=== PATIENT | female | born 1960 | race African-American/Black ===

== ENCOUNTER 2024-12-22 17:28 | Emergency (ER) | payer MEDICAID, SELFPAY ==
[2024-12-22 17:47] VITALS: BP 132/86; PULSE 90; O2SAT 97; BMI 35.0
[2024-12-22 17:56] VITALS: BP 132/72; PULSE 86; RESP 14; TEMP 36.7; O2SAT 97
--- NOTE | 2024-12-22 18:11 | ED.GENADULT ---
HPI - General Adult General Chief complaint: General Medical Stated complaint: pain in feet from arthritis, sob Time Seen by Provider: 12/22/24 18:03 Source: patient, EMS and old records reviewed Mode of arrival: EMS Limitations: no limitations History of Present Illness ED Provider: Yonathan ULLOA HPI narrative: The patient is a 64-year-old female with a history of COPD, hypertension, fibromyalgia, bipolar disorder, and crack cocaine dependency who was [facility] from [facility] on 11/27/2024. The patient reportedly has been treated with an [id number] cream for her chronic bilateral feet pain. The patient advises the facility has run out of the foot cream and is unable to get the cream until Tuesday. Per EMS the patient also reported increased shortness of breath, however is speaking in full clear, and rapid sentences without evidence of respiratory distress. In the ED patient denies shortness of breath or other acute somatic complaint. Patient denies any injury. The patient presents to the ED with pressured speech and agitated affect, reliability is questionable. Facility was contacted to confirm patient's reported HPI, facility staff advised that the facility has not run out of the cream, however advise it is an [id number] arthritis cream that the patient has available to her and can put on at her leisure, staff reports the patient is over applying the cream every 20 minutes and running out, then demanding that the staff take the same cream from other residents and give it to her. The staff also advised that despite the patient's report of 10/10 bilateral foot pain, the patient is ambulating steadily throughout the facility without evidence of discomfort demanding other residents give her their cream. Related Data Previous Rx's ?Medication ?Instructions ?Recorded diclofenac sodium 1 % topical gel 2 g topical QID PRN pain, moderate 12/22/24 (Voltaren Arthritis Pain) #100 grams Allergies Allergy/AdvReac Type Severity Reaction Status Date / Time Opioids-Meperidine and Allergy Unknown Verified 12/22/24 17:51 Related Review of Systems Review of Systems: Yes all other systems are reviewed and are negative Physical Exam ED Vital Signs: Vital Signs - 24 hr 12/22/24 17:56 Temperature 98.0 F Pulse Rate 86 Respiratory Rate 14 Blood Pressure 132/72 Pulse Oximetry 97 Oxygen Delivery Method Room Air BMI result Body Mass Index 35.0 CONSTITUTIONAL: The patient appears non-toxic, well nourished and in no acute distress. Vital signs as documented. HEAD: Atraumatic, normocephalic. EYES: EOMs grossly intact, pupils equal, conjunctiva clear, no exudate. ENT: Nares patent, no discharge. Airway patent, no audible stridor, visible mucosa is pink and moist without noted lesions. NECK: Trachea is midline, no obvious masses or gross abnormalities. CHEST: Symmetric movement, normal appearance. LUNGS: LS present and CTAB, no w/r/r. Non-labored work of breathing. CARDIAC: Regular Rhythm, S1/S2 appreciated, no murmurs, rubs or gallops. ABDOMEN: Abdomen soft and non-tender x4 quadrants, no palpable masses or organomegaly. : Deferred. EXTREMITIES: Bilateral feet show no evidence of erythema, contusion, injury, open wound, candidal infection, or other acute pathology. Distal CSM is intact, 2+ DP/PT pulses bilaterally. Normal tone, moves all extremities spontaneously without reported pain. No obvious acute injury or deformity noted. NEURO: Alert and oriented x3, CN II-XII appear grossly intact. Cerebellar Functioning grossly intact. No obvious sensory or motor deficits. Speech clear and appropriate. PSYCH: normal affect, appropriate eye contact, fluid speech, with appropriate response to questioning. No reported suicidality or homicidality. SKIN: Warm, dry, color appropriate, normal turgor. No rashes noted. Medical Decision Making Medical Decision Making MDM Narrative: 6:48 PM 12/22/2024 (Em ULLOA): The patient is a 64-year-old female with a history of COPD, hypertension, fibromyalgia, bipolar disorder, and crack cocaine dependency, presenting to from her nursing facility reporting intolerable 10/10 chronic bilateral foot pain and running out of her arthritis foot cream. The patient's facility advises the patient does not have a prescription arthritic scream, and is overusing her personal foot cream which is why it ran out. The patient appears in no acute distress in the ED, foot exam is unremarkable. The patient will be treated with Aspercreme and discharged with a prescription for Voltaren gel, according to facility staff prescription should be sent to [facility] at [address] [place] [address] in [place]. External Record Review External record reviewed: Outpatient record Prescription Management I considered prescription management with: Pain Medication Discharge Plan Discharge Clinical Impression: Chronic foot pain Patient Disposition: Home, Self-Care Instructions: Arthralgia (ED) Additional Instructions: Thank you for choosing [facility]'s Emergency Department for your care today. At this time there is no indication for admission to the hospital or continued ED observation, and it is safe to discharge you home. We are treating your chronic foot pain with Voltaren gel. This is a prescription strength arthritis cream which should result in significant relief of your bilateral foot pain. However, because it is prescription strength it must be maintained by your facility staff and administered on a scheduled basis per manufacture recommendations. Please follow up with your primary care physician for re-evaluation, additional management of your symptoms, and continued preventative care. If you do not have a primary care physician, please call the [facility] at [phone] to establish a new primary care physician. While waiting to establish your new primary care physician, you can call our [facility] at [phone] for non-emergency needs. Please return to the emergency department if you develop a severe or sudden change in your symptoms, a fever over 100.4 that does not improve with Tylenol or Ibuprofen, recurrent vomiting, or any other new or worsening symptoms or concerns. Prescriptions: New diclofenac sodium [Voltaren Arthritis Pain] 1 % gel 2 g topical QID PRN (Reason: pain, moderate) Qty: 100 0RF Rx Instructions: apply to bilateral feet Print Language: South African
[2024-12-22] MEDS: Trolamine Salicylate 10 % Cream 85 GM TUBE 1 APPL TOPICAL (19:22)
[2024-12-22 20:43] VITALS: BP 155/92; PULSE 87; RESP 20; TEMP 36.6; O2SAT 97
[2024-12-22 21:15] VITALS: BP 155/92; PULSE 87; RESP 20; TEMP 36.6; O2SAT 97
== END 2024-12-22 23:28 | disposition home or self-care (01) ==
PROVIDERS: Emergency Provider Emergency Medicine
DX: G89.29 Other chronic pain (principal); M79.671 Pain in right foot; M79.672 Pain in left foot; R06.02 Shortness of breath; J44.9 Chronic obstructive pulmonary disease, unspecified; I10 Essential (primary) hypertension; M79.7 Fibromyalgia; F31.9 Bipolar disorder, unspecified; F14.20 Cocaine dependence, uncomplicated
CPT/HCPCS: 99283

== ENCOUNTER 2024-12-28 08:10 | Emergency (ER) | payer MEDICAID, SELFPAY ==
--- NOTE | ~2024-12-28 | CT_ITS ---
EXAMINATION: CT ABDOMEN AND PELVIS WITH CONTRAST CLINICAL INFORMATION: lower abdominal pain, sensation of urinary retention COMPARISON: None available. TECHNIQUE: Multidetector volumetric images were obtained from the superior aspect of the liver through the pubic symphysis following administration 85 mL of Omnipaque 350 intravenous contrast. Sagittal and coronal reformatted images were obtained on the technologist's workstation. Oral contrast: No This CT examination was performed using dose optimization techniques as appropriate, variously including the following: *Automated exposure control *Adjustment of mA and/or kV according to patient size (this includes techniques or standardized protocols for targeted exams where dose is matched to indication/reason for exam; i.e. extremities or head) *Use of iterative reconstruction technique DLP: 773 mGY*cm FINDINGS: LUNG BASES: Minimal linear atelectasis present in the dependent portion of the right lung base. LIVER, GALLBLADDER, AND BILIARY TREE: Mild diffuse fatty changes are present liver. The gallbladder is unremarkable with no evidence of radiopaque gallstones, gallbladder wall thickening, or obvious pericholecystic inflammatory changes. PANCREAS: Unremarkable. SPLEEN: Unremarkable. ADRENAL GLANDS: Unremarkable. KIDNEYS AND URETERS: Multifocal cortical scarring is present bilaterally. There is a simple renal cyst in the lower left kidney. BLADDER: Unremarkable. GASTROINTESTINAL TRACT: Pseudodiverticula are present in the distal descending and sigmoid colon. There is no wall thickening or inflammatory changes in the adjacent adipose tissues. There are surgical changes from prior appendectomy. ABDOMINAL WALL: No significant hernia is appreciated. LYMPH NODES: Normal. VASCULAR: Mild multifocal atherosclerotic calcifications are present. PELVIC VISCERA: Unremarkable. OSSEOUS STRUCTURES: There is moderate disc space narrowing with vacuum phenomenon and grade 1 anterolisthesis at L4-5. There is moderate facet osteoarthritis. Moderate degenerative changes are present in the pubic symphysis joint. There is a transitional L5 segment with sacralization. Transverse processes articulate with superior sacrum. CT/CT abdomen pelvis w IV con IMPRESSION: Fatty liver. Changes from prior appendectomy. Multifocal renal cortical scarring is consistent with prior pyelonephritis. Diverticulosis without acute infection. Moderate degenerative disc disease and facet osteoarthritis at L4-5. Sacralized L5 segment. Fleischner guidelines were followed. Electronically signed by: Joey Longoria MD 12/28/2024 11:13 AM EDT
[2024-12-28 08:18] VITALS: BP 139/89; BP 142/98; PULSE 82; PULSE 86; RESP 18; TEMP 36.4; O2SAT 98; O2SAT 99; BMI 38.5
--- NOTE | 2024-12-28 08:21 | ED_ITS ---
HPI - General Adult General Chief complaint: Urogenital-Female Stated complaint: INABILITY TO URINATE Time Seen by Provider: 12/28/24 08:21 History of Present Illness ED Provider: Mark CAMPOS narrative: The patient is a 64-year-old woman who says that she feels like she has not been able to urinate since 21:00 last night. She says that she has an intense sensation that she needs to urinate and she says that she feels like her bladder ?is going to burst. ?. The pain is an 8/10. She does not feel that it radiates to her flank on either side. She has had no nausea or vomiting. She has never had an episode like this before. She is very hungry because she has not eaten breakfast. The patient is currently living at the [facility]. She has only been living there for a few weeks. She had previously been living in the [place] area. She has a primary care doctor in the [place] area. She does not yet have a local primary care doctor. Related Data Previous Rx's ?Medication ?Instructions ?Recorded diclofenac sodium 1 % topical gel 2 g topical QID PRN pain, moderate 12/22/24 (Voltaren Arthritis Pain) #100 grams Allergies Allergy/AdvReac Type Severity Reaction Status Date / Time Opioids-Meperidine and Allergy Unknown Verified 12/28/24 08:20 Related Review of Systems 2 Review of Systems: Yes all other systems are reviewed and are negative Physical Exam ED Vital Signs: Vital Signs - 24 hr 12/28/24 08:18 12/28/24 09:30 12/28/24 11:14 Temperature 97.5 F 97.5 F 97.7 F Pulse Rate 86 86 91 Respiratory Rate 18 18 16 Blood Pressure 139/89 139/89 118/74 Pulse Oximetry 99 99 97 Oxygen Delivery Method Room Air Room Air Room Air BMI result Body Mass Index 38.5 Const Other: The patient is a 64-year-old woman who was somewhat chronically ill-appearing. She said that she was in a great deal of discomfort but she did not appear obviously restless or show other significant outward signs of discomfort. She has a somewhat unusual demeanor. Orientation/consciousness: patient oriented x3 HENMT Other: The face is symmetrical. ?Mucous membranes moist. Eyes Other: Pupils are round equal, conjunctivae are clear, extraocular movements intact Neck Neck: Yes normal visual inspection, Yes full ROM and Yes no JVD Resp Effort & Inspection: normal respiratory effort Auscultation: clear to auscultation bilaterally Cardio Rate: regular rate Rhythm: regular rhythm Heart sounds: S1 normal heart sound present and S2 normal heart sound present GI Other: The abdomen was soft and did not seem particularly tender. Specifically she does not seem to have tenderness in the suprapubic region. Back/Spine/Pelvis Other: No CVA percussion tenderness on either flank Skin Other: The skin is dry and unremarkable Neuro General: patient oriented x3, moves all extremities, no focal motor deficits and CN's II-XI intact bilaterally Extrem Other: No significant calf swelling or tenderness, no asymmetry Medications Administered Discontinued Medications Generic Name Dose Route Start Last Admin Trade Name Freq PRN Reason Stop Dose Admin Gabapentin 800 mg 12/28/24 13:02 12/28/24 13:12 Gabapentin 400 Mg Capsule PO 12/28/24 13:03 800 mg ONCE ONE Administration Iohexol 100 ml 12/28/24 10:50 12/28/24 10:51 Iohexol 350 Mg/Ml 100 Ml Infus..Btl IV 12/28/24 10:51 85 ml ONCE ONE Administration Medical Decision Making Medical Decision Making [facility] Narrative: The patient is a 64-year-old woman who [facility]. She is a relatively new resident there. She has a only been there for a few weeks. She had previously been living in [place], [place]. She has not yet established local providers. The patient presented with a complaint of being unable to void although her bladder scan only showed a bladder volume of about 160 mL. She insisted that she could not pee. She was given a urinary catheter and her bladder was drained. She later said that she needed to have a bowel movement and requested that the urinary catheter be removed so she could go to the bathroom. The catheter was removed. She went to the bathroom and says that she had a good bowel movement. A CT of the abdomen and pelvis was done to look for any anatomical reason she might have had trouble voiding. This was negative. She then requested that she return to her rest home. She was observed waiting for an ambulance to return her to the rest [facility]. She had no recurrent complaints of urinary retention or inability to void. Perhaps she had had a large amount of stool that was interfering with voiding. Ultimately she was transferred by ambulance back to her rest home. Lab Data 12/28/24 09:16 12/28/24 09:16 Labs: Lab Results 12/28/24 Range/Units 09:16 WBC 5.0 (4.8-10.8) X10*3/uL RBC 3.44 L (4.20-5.50) X10*6/uL Hgb 10.3 L (12.0-16.0) g/dl Hct 32.0 L (37.0-47.0) % MCV 93.0 (80.0-98.0) fL MCH 29.9 (27.0-33.0) pg MCHC 32.2 (31.0-35.0) g/dl RDW 14.4 (11.0-16.0) % Plt Count 199 (160-400) X10*3/uL MPV 11.4 (9.4-12.3) fL Immature Gran % (Auto) 0.2 (0.0-0.4) % Neut % (Auto) 47.0 (45-73) % Lymph % (Auto) 38.0 (20-40) % [place] % (Auto) 9.6 (2-11) % Eos % (Auto) 4.6 H (0-4) % Baso % (Auto) 0.6 (0-2) % Lymph # (Auto) 1.9 (1.2-4.9) X10*3/uL [place] # (Auto) 0.5 (0.1-1.2) X10*3/uL Eos # (Auto) 0.2 (0.0-0.4) X10*3/uL Baso # (Auto) 0.0 (0.0-0.2) X10*3/uL Abs Immat Gran (auto) 0.01 (0.00-0.03) X10*3/uL Absolute Neuts (auto) 2.4 (2.0-8.3) x10*3/uL Absolute Nucleated RBC 0.000 (0.0-0.012) X10*3/uL Nucleated RBC % (auto) 0.0 (0.0-0.2) /100WBC Sodium 141 (135-145) mmol/L Potassium 4.3 (3.3-5.1) mmol/L Chloride 108 (96-108) mmol/L Carbon Dioxide 23 (22-29) mmol/L Anion Gap 14 (12-20) BUN 17 H (9-16) mg/dL Creatinine 1.01 (0.5-1.4) mg/dL Estim Creat Clear Calc 71.8 Estimated GFR 56 Random Glucose 88 (60-115) mg/dL Calcium 9.2 (8.4-10.2) mg/dL Total Bilirubin 0.2 (0.0-1.0) mg/dL Direct Bilirubin < 0.2 (0.0-0.5) mg/dL AST 37 H (5-31) U/L ALT 49 H (0-31) U/L Alkaline Phosphatase 74 (39-117) U/L C-Reactive Protein 0.28 (< or = 0.50) mg/dL Total Protein 7.8 (6.5-8.0) g/dL Albumin 4.6 (3.5-5.0) g/dL Urine Color Yellow Urine Appearance Clear Urine pH 6.0 (5.0-9.0) Ur Specific Hendricks 1.020 (1.005-1.025) Urine Protein Negative (Neg-Trace) mg/dL Urine Glucose (UA) Negative (Negative) mg/dL Urine Ketones Negative (Negative) mg/dL Urine Blood Negative (Negative) Urine Nitrite Negative (Negative) Ur Leukocyte Esterase Negative (Negative) Discharge Plan Discharge Clinical Impression: Difficulty voiding Patient Disposition: Home, Self-Care Additional Instructions: I am not sure why you were having difficulty urinating today. Your urinalysis does not show any sign of infection. Your CAT scan does not show any obvious concerning anatomical problem. Perhaps you were somewhat constipated and this has been relieved with a bowel movement. Sometimes constipation can cause a person to retain urine. Please continue your regular medications. Please work on getting a new local primary care doctor. You has been given the contact information for some local primary care offices. Return to the emergency room if you are significantly worse. Prescriptions: No Action diclofenac sodium [Voltaren Arthritis Pain] 1 % gel 2 g topical QID PRN (Reason: pain, moderate) Qty: 100 0RF Rx Instructions: apply to bilateral feet Referrals: [facility] Primary CareJoshua [Provider Group, Internal Medicine] [facility] Primary Care, Nicole [Provider Group, Internal Medicine] [facility] Primary Care, ALEJANDRO [Provider Group, Primary Care] Anitra Gurrola MD [Physician, Internal Medicine] Interventions: ED Discharge Assessment Last Done: 12/28/24 15:33 Discharge Date/Time: 12/28/24 15:33 Print Language: Hebrew
--- NOTE | 2024-12-28 08:27 | PC.NURSE ---
Patient from [facility]. A&O x4 Patient reports not being able to urinate since 9pm last night. Patient reports bladder feels full Its going to burst Pain rated 8/10 non radiating. Abdomen soft and tender in lower quadrants Bladder scanned for 161ml Denies any recent urinary symptoms, denies having past trouble voiding
--- NOTE | 2024-12-28 08:57 | PC.NURSE ---
Raymundo inserted 16fr 10ml balloon. Patient tolerated procedure Raymundo patent draining yellow urine for approx 100ml Patient reports relief
--- OUTSIDE RECORDS SUMMARY | 2024-12-28 09:27 | XMS_ITS | Patient Health Record ---
Author Organization [facility] Address [address], [place] [id number] Care Team Providers Care Java Developer Consultant Name Role Phone David Gunn [facility] Primary Care Provider [facility] Unavailable [phone] Reason For Referral No Information Plan Of Treatment No Information Insurance Providers Payer Name Payer Address Payer Phone Subscriber Number Group Number Insured Name Patient Relationship to Insured Coverage Start Date Coverage End Date [facility] [employer] [address] [place] [address] [id number] Lakia Zacarias Self - patient is the insured [place] Medicaid Standard [address] [place] [address] [phone] [id number] Lakia Zacarias Self - patient is the insured
[2024-12-28 09:29] LABS: MANUAL DIFF FLAG NO
[2024-12-28 09:30] VITALS: BP 139/89; PULSE 86; RESP 18; TEMP 36.4; O2SAT 99
[2024-12-28 09:31] LABS: Hematocrit 32.0 % (37.0-47.0); Hemoglobin 10.3 g/dl (12.0-16.0); Imm Gran Abs Auto 0.01 X10*3/uL (0.00-0.03); Imm Gran Pct Auto 0.2 % (0.0-0.4); Lymphocytes Absolute Auto 1.9 X10*3/uL (1.2-4.9); Mean Corpuscular HGB Conc 32.2 g/dl (31.0-35.0); Mean Corpuscular Hemoglobin 29.9 pg (27.0-33.0); Mean Corpuscular Volume 93.0 fL (80.0-98.0); NRBC Abs Auto 0.000 X10*3/uL (0.0-0.012); NRBC Pct Auto 0.0 /100WBC (0.0-0.2); Platelet Count 199 X10*3/uL (160-400); Red Blood Count 3.44 X10*6/uL (4.20-5.50); White Blood Count 5.0 X10*3/uL (4.8-10.8)
[2024-12-28 09:32] LABS: Appearance Urine Clear; Glucose Urine UA Negative (Negative); PH 6.0 (5.0-9.0); Specific Gravity - Urine 1.020 (1.005-1.025)
[2024-12-28 09:55] LABS: Alanine Aminotransferase 49 U/L (0-31); Albumin Level 4.6 g/dL (3.5-5.0); Alkaline Phosphatase 74 U/L (39-117); Anion Gap 14 (12-20); Aspartate Amino Transferase 37 U/L (5-31); Blood Urea Nitrogen 17 mg/dL (9-16); Calcium 9.2 mg/dL (8.4-10.2); Carbon Dioxide 23 mmol/L (22-29); Chloride 108 mmol/L (96-108); Creatinine Clr Calc Pharmacy 71.8; Estimated Glomerular Filt Rate 56; Potassium 4.3 mmol/L (3.3-5.1); Sodium 141 mmol/L (135-145); Total Protein 7.8 g/dL (6.5-8.0)
[2024-12-28] MEDS: iohexoL 350 MG/ML 100 ML INFUS..BTL IV (10:51)
[2024-12-28 11:14] VITALS: BP 118/74; PULSE 91; RESP 16; TEMP 36.5; O2SAT 97
--- NOTE | 2024-12-28 11:14 | PC.NURSE ---
Raymundo has been removed Patient able to ambulate with cane to bathroom +void results Patient denies pain
[2024-12-28 15:33] VITALS: BP 118/74; PULSE 91; RESP 16; TEMP 36.5; O2SAT 97
== END 2024-12-28 15:33 | disposition home or self-care (01) ==
PROVIDERS: Emergency Provider Emergency Medicine
DX: R33.9 Retention of urine, unspecified (principal); R10.2 Pelvic and perineal pain; Z79.899 Other long term (current) drug therapy
CPT/HCPCS: 36415; 74177; 80048; 80076; 81003; 85025; 86140; 99285; Q9967

== ENCOUNTER → 2024-12-28 10:12 | Outpatient (BNV) | payer MEDICAID, SELFPAY | PROVIDERS: Emergency Provider Emergency Medicine; Visit Provider Radiology Diagnostic Radiology | DX: R39.14 Feeling of incomplete bladder emptying (principal) | CPT/HCPCS: 74177 ==

== ENCOUNTER 2025-02-25 13:58 | Emergency (ER) | payer MEDICAID, SELFPAY ==
--- NOTE | ~2025-02-25 | XR_ITS ---
EXAMINATION: XR CHEST CLINICAL INFORMATION: dyspnea COMPARISON: None available. TECHNIQUE: Frontal view of the chest was obtained. FINDINGS: The cardiac, hilar, and mediastinal contours are normal. The lungs are clear bilaterally. No pneumothorax or effusion. No focal osseous or soft tissue abnormality. XR/XR chest 1V IMPRESSION: No active pulmonary disease. Electronically signed by: Yonathan Madera MD 02/25/2025 04:07 PM EDT
--- NOTE | 2025-02-25 14:43 | ECG_ITS ---
Test Reason : SOB Blood Pressure : */* mmHG Vent. Rate : 87 BPM Atrial Rate : 87 BPM P-R Int : 138 ms QRS Dur : 70 ms QT Int : 364 ms P-R-T Axes : 48 14 27 degrees QTcB Int : 438 ms Normal sinus rhythm Nonspecific T wave abnormality Abnormal ECG No previous ECGs available Referred By: Stefanie Calero Electronically Signed By: JOSIAH RAMIREZ MD
[2025-02-25 15:04] VITALS: BP 110/72; BP 128/80; PULSE 100; PULSE 66; RESP 22; TEMP 36.8; O2SAT 95; O2SAT 98; BMI 36.8
--- NOTE | 2025-02-25 15:18 | ED.GENADULT ---
HPI - General Adult General Chief complaint: General Medical Stated complaint: ETOH Time Seen by Provider: 02/25/25 14:18 Source: patient and old records reviewed Mode of arrival: ambulatory Limitations: no limitations History of Present Illness ED Provider: GINI CAMPOS narrative: 65 yo female with PMH of ETOH use disorder, fibromyalgia, asthma, HTN, she resides at [facility] - she has been missing for several weeks. She notes that she relapsed with alcohol. I am 65 I am too old to be doing this. She denies SI/HI. She is alert and oriented x 3. She denies headstrike. She states her only complaint is she feels anxious and a little short of breath. She wants arthritis gel for her feet. She is reading a book. She states she has been staying at [facility]. She also notes she has been using crack cocaine MD complaint: alcohol abuse Onset (ago): year(s) Radiation: non-radiation Severity: mild Relieving factors: none Exacerbating factors: other Associated symptoms: shortness of breath Treatments prior to arrival: none Related Data Home Medications ?Medication ?Instructions ?Recorded ?Confirmed Lactobacillus acidophilus 0.5 mg 500 mg PO QID 02/25/25 02/25/25 (100 million cell) tablet acetaminophen 325 mg tablet 650 mg PO Q6H PRN Pain 02/25/25 02/25/25 albuterol sulfate 90 mcg/actuation 2 puff inhalation Q4-6H PRN SOB 02/25/25 02/25/25 aerosol inhaler aspirin 81 mg tablet,delayed 81 mg PO DAILY 02/25/25 02/25/25 release atorvastatin 80 mg tablet 80 mg PO DAILY 02/25/25 02/25/25 cyclobenzaprine 10 mg tablet 10 mg PO DAILY PRN Spasms 02/25/25 02/26/25 divalproex 500 mg tablet,delayed 500 mg PO BID 02/25/25 02/25/25 release gabapentin 800 mg tablet 800 mg PO TID 02/25/25 02/25/25 ibuprofen 400 mg tablet 400 mg PO Q6H PRN Pain 02/25/25 02/25/25 lisinopril 10 mg tablet 10 mg PO DAILY 02/25/25 02/25/25 loratadine 10 mg tablet 10 mg PO DAILY 02/25/25 02/25/25 melatonin 3 mg tablet 3 mg PO BEDTIME PRN insomnia 02/25/25 02/25/25 multivitamin 1 tab PO DAILY 02/25/25 02/25/25 quetiapine 100 mg tablet 100 mg PO BEDTIME 02/25/25 02/25/25 quetiapine 50 mg tablet 50 mg PO DAILY 02/25/25 02/25/25 Previous Rx's ?Medication ?Instructions ?Recorded diclofenac sodium 1 % topical gel 2 g topical QID PRN pain, moderate 12/22/24 (Voltaren Arthritis Pain) #100 grams Allergies Allergy/AdvReac Type Severity Reaction Status Date / Time Opioids-Meperidine and Allergy Unknown Verified 02/25/25 15:07 Related Review of Systems Review of Systems: Constitutional : No Fever, No Chills ENT/Mouth : No Ear Pain, No Nasal Congestion, No sore throat Eyes: No Eye Pain, No Swelling, No Redness Cardiovascular : No Chest Pain, pos SOB Respiratory : No Cough, No Sputum, No Dyspnea Gastrointestinal : No Nausea, No Vomiting, No Diarrhea, No Hematochezia, No Melena Genitourinary : No Dysuria, No Urinary Frequency, No Hematuria Musculoskeletal : No Myalgias Skin : No Skin Lesions, No rash Neuro : No Weakness, No Numbness, No Paresthesias, No Dizziness, No Headache Psych : positive Anxiety, no Depression, no SI/HI All other systems reviewed and are negative [facility] Past Medical History Attestation statement: The following information was validated with the patient. Source: old records reviewed Medical History Fibromyalgia Asthma Alcohol use disorder HTN (hypertension) Social History Social History (Updated 02/25/25 @ 15:28 by Stefanie Calero DO) Unable to assess alcohol history related to: Unknown Patient Tobacco Use Status: Tobacco use Unknown Use of substances other than those prescribed or required for medical reasons: Yes Substance Use Type: Crack/Cocaine Advance Directives: Yes Advance Directives Information Provided: Yes Advance Directives on File: Yes Advance Directives Date on File: 12/31/24 Do you have a plan to hurt others: No Plan Patient : No Physical Exam ED Vital Signs: Vital Signs - 24 hr 02/27/25 06:16 02/27/25 22:00 02/28/25 05:37 Temperature 97.4 F Pulse Rate 76 Respiratory Rate 18 18 18 Blood Pressure 138/76 Pulse Oximetry 97 Oxygen Delivery Method Room Air BMI result Body Mass Index 36.8 Appearance: Alert. Oriented X3. anxious yelling mild acute distress. Eyes: Pupils equal, round and reactive to light. ENT: Pharynx normal. Neck: Normal inspection. Neck supple. CVS: Normal heart rate and rhythm. Pulses normal. Respiratory: No respiratory distress. Breath sounds slightly diminished Abdomen: Soft and nontender. Skin: Skin warm and dry. Normal skin color. Normal skin turgor. Extremities: No lower extremity edema. Neuro: Oriented X 3. No motor deficit. No sensory deficit. CN2-12 intact Course Course Course Narrative: per CM - patient left on Tuesday and did crack and ETOH, employee from [facility] saw her there. She ended up at [facility] but no detox was done. Patient has no guardian and has no HCP, she makes her own decisions. She went back to [facility] today and when they went to search the room she then stated she wanted detox 347pm 02/25/25 GINI Reevaluation(s) Reevaluation #1: physician observation started at 357pm pending recovery GINI Reevaluation #2: signed out to Dr. Monzon pending further work up GINI 02/25/25 408pm Reevaluation #3: DR. Farfan's progress note; 02/26/2025;8;00. VSS, no events reported overnight, under section 12 await for inpatient psych bed search, labs were reviewed possible UTI, was already started on Bactrim for UTI. care team input is appreciated, continue with physician observation. Time: 06:23 Date: 02/27/25 Provider: Stefanie Calero, DO Patient in physician observation for psychiatric evaluation.? No acute events reported overnight. No current complaints. VS stable.? Pending detox bed search. Will continue to monitor. Additional Reevaluation(s): Time: 06:02 Date: 02/28/25 Provider: Stefanie Calero, DO Patient in physician observation for psychiatric evaluation.? No acute events reported overnight. No current complaints. VS stable.? Patient is in bed search status. . Will continue to monitor. Medications Administered Generic Name Dose Route Start Last Admin Trade Name Freq PRN Reason Stop Dose Admin Acetaminophen 650 mg 02/27/25 20:31 02/27/25 20:39 Acetaminophen 325 Mg Tablet PO 650 mg Q6H PRN Administration Pain, Moderate(Pain Scale 4-6) Aspirin 81 mg 02/26/25 09:00 02/27/25 09:19 Aspirin Enteric Coated 81 Mg Tablet. PO 81 mg DAILY RAFA Administration Atorvastatin Calcium 80 mg 02/26/25 09:00 02/27/25 09:21 Atorvastatin Calcium 80 Mg Tablet PO 80 mg DAILY RAFA Administration Capsaicin 1 appl 02/25/25 20:42 02/27/25 20:17 Capsaicin 0.075% Cream 57 Gm Tube TOPICAL 1 appl TID PRN Administration Pain, Mild (Pain Scale 1-3) Divalproex Sodium 500 mg 02/25/25 22:45 02/27/25 20:14 Divalproex Sodium 500 Mg Tablet. PO 500 mg BID RAFA Administration Gabapentin 800 mg 02/25/25 22:45 02/27/25 20:15 Gabapentin 400 Mg Capsule PO 800 mg TID RAFA Administration Lisinopril 10 mg 02/26/25 09:00 02/27/25 09:19 Lisinopril 10 Mg Tablet PO 10 mg DAILY RAFA Administration Protocol Loratadine 10 mg 02/26/25 09:00 02/27/25 09:20 Loratadine 10 Mg Tablet PO 10 mg DAILY RAFA Administration Melatonin 3 mg 02/25/25 22:33 02/26/25 22:07 Melatonin 3 Mg Tablet PO 3 mg BEDTIME PRN Administration insomnia Multivitamins/Vitamin C 1 tab 02/26/25 09:00 02/27/25 09:20 Multivitamin Tablet PO 1 tab DAILY RAFA Administration Quetiapine Fumarate 50 mg 02/26/25 09:00 02/27/25 09:20 Quetiapine Fumarate 50 Mg Tablet PO 50 mg DAILY RAFA Administration Quetiapine Fumarate 100 mg 02/25/25 22:45 02/27/25 20:14 Quetiapine Fumarate 100 Mg Tablet PO 100 mg BEDTIME RAFA Administration Trimethoprim/Sulfamethoxazole 1 tab 02/25/25 21:00 02/27/25 20:14 Sulfamethox/Trimeth 800/160 Tablet PO 03/01/25 09:00 1 tab BID RAFA Administration Discontinued Medications Generic Name Dose Route Start Last Admin Trade Name Freq PRN Reason Stop Dose Admin Acetaminophen 650 mg 02/25/25 21:19 02/25/25 21:26 Acetaminophen 325 Mg Tablet PO 02/25/25 21:20 650 mg ONCE ONE Administration Acetaminophen 975 mg 02/26/25 22:05 02/26/25 22:13 Acetaminophen 325 Mg Tablet PO 02/26/25 22:06 975 mg ONCE ONE Administration Melatonin 6 mg 02/25/25 21:46 02/25/25 23:16 Melatonin 3 Mg Tablet PO 02/25/25 21:47 6 mg ONCE ONE Administration Medical Decision Making Medical Decision Making MDM Narrative: 65 yo female with PMH of ETOH use disorder, fibromyalgia, asthma, HTN, she resides at [facility] who comes in after using ETOH and crack cocaine as well as eloping from there for several weeks. She denies trauma or pain. She denies SI. She states she needs to get into a program. She does feel a little short of breath. At this time labs, EKG, CXR, bronch therapy. No pain to suggest VTE and no signs of DVT. She denies infectious symptoms. Differential Diagnosis Differential Diagnoses: The differential diagnosis associated with the presentation includes asthma, ETOH use disorder, drug abuse Admission/Observation Consideration of admission/observation: Escalation of care including admission/observation considered observe until medically cleared and safe DC Consult Healthcare Provider Management of the patient was discussed with: [employer] [facility] [employer] [facility] Lab Data [facility] Lab Attestation statement: I reviewed the patient's lab results. 02/25/25 17:11 Labs: Lab Results 02/25/25 02/25/25 02/25/25 Range/Units 16:27 17:11 17:26 WBC 8.6 (4.8-10.8) X10*3/uL RBC 3.44 L (4.20-5.50) X10*6/uL Hgb 10.1 L (12.0-16.0) g/dl Hct 32.4 L (37.0-47.0) % MCV 94.2 (80.0-98.0) fL MCH 29.4 (27.0-33.0) pg MCHC 31.2 (31.0-35.0) g/dl RDW 14.5 (11.0-16.0) % Plt Count 203 (160-400) X10*3/uL MPV 11.6 (9.4-12.3) fL Immature Gran % (Auto) 0.2 (0.0-0.4) % Neut % (Auto) 55.7 (45-73) % Lymph % (Auto) 34.5 (20-40) % [place] % (Auto) 6.9 (2-11) % Eos % (Auto) 2.2 (0-4) % Baso % (Auto) 0.5 (0-2) % Lymph # (Auto) 3.0 (1.2-4.9) X10*3/uL [place] # (Auto) 0.6 (0.1-1.2) X10*3/uL Eos # (Auto) 0.2 (0.0-0.4) X10*3/uL Baso # (Auto) 0.0 (0.0-0.2) X10*3/uL Abs Immat Gran (auto) 0.02 (0.00-0.03) X10*3/uL Absolute Neuts (auto) 4.8 (2.0-8.3) x10*3/uL Absolute Nucleated RBC 0.000 (0.0-0.012) X10*3/uL Nucleated RBC % (auto) 0.0 (0.0-0.2) /100WBC VBG pH 7.44 H (7.32-7.43) VBG pCO2 29 mmHg VBG pO2 96 mmHg VBG HCO3 20 L (22-26) mmol/L VBG O2 Saturation 99.0 % VBG Base Excess -2.4 mmol/L Sodium 141 (135-145) mmol/L Potassium 4.0 (3.3-5.1) mmol/L Chloride 107 (96-108) mmol/L Carbon Dioxide 22 (22-29) mmol/L Anion Gap 16 (12-20) BUN 23 H (9-16) mg/dL Creatinine 1.14 (0.5-1.4) mg/dL Estim Creat Clear Calc 63.4 Estimated GFR 48 Random Glucose 103 (60-115) mg/dL Calcium 9.4 (8.4-10.2) mg/dL Magnesium 2.0 (1.6-2.6) mg/dL Total Bilirubin 0.2 (0.0-1.0) mg/dL Direct Bilirubin < 0.2 (0.0-0.5) mg/dL AST 197 H (5-31) U/L ALT 108 H (0-31) U/L Alkaline Phosphatase 73 (39-117) U/L Troponin I High Sens 4.3 (<3.5-17.0) ng/L NT-Pro-B Natriuret Pep 107.7 (<300) pg/mL Total Protein 7.9 (6.5-8.0) g/dL Albumin 4.6 (3.5-5.0) g/dL Urine Color Dark Yellow Urine Appearance Cloudy Urine pH 5.5 (5.0-9.0) Ur Specific [place] >= 1.030 H (1.005-1.025) Urine Protein Trace (Neg-Trace) mg/dL Urine Glucose (UA) Negative (Negative) mg/dL Urine Ketones Trace (Negative) mg/dL Urine Blood Negative (Negative) Urine Nitrite Negative (Negative) Ur Leukocyte Esterase Moderate (2+) H (Negative) Urine RBC 0-2 (0-2) /HPF Urine WBC >50 H (0-5) /HPF Ur Squamous Epith Cells 6-10 (0-2) /HPF Urine Bacteria 1+ (None Seen) Hyaline Casts 3-5 (0-2) /LPF Urine Opiates Screen Not Detected (Not Detect) Ur Buprenorphine Scrn Not Detected (Not Detect) ng/mL Ur Oxycodone Screen Not Detected (Not Detect) ng/mL Urine Methadone Screen Not Detected (Not Detect) ng/mL Urine Fentanyl Screen Not Detected (Not Detect) Ur Barbiturates Screen Not Detected (Not Detect) Ur Phencyclidine Scrn Not Detected (Not Detect) Ur Amphetamines Screen Not Detected (Not Detect) U Benzodiazepines Scrn Not Detected (Not Detect) Urine Cocaine Screen POSITIVE H (Not Detect) U Marijuana (THC) Screen POSITIVE H (Not Detect) Ethyl Alcohol 11 mg/dL Influenza Type A (SARABJIT) Negative (Negative) Influenza Type B (SARABJIT) Negative (Negative) Influenza A & B Note See Note Independent Interpretation I performed an independent interpretation of an: EKG and Plain X-Ray Interpretation: Rate: 87 Rhythm: NSR [place]: normal Normal P waves. Normal CECILIO. Normal QRS complex. ST T wave : no JORDAN, nonspecific ST T wave changes qTC: 438 prior studies: none The study has been interpreted contemporaneously by me. . Radiology Impression Discussion of test interpretation with radiology: I have reviewed the radiologist's reading. Independent Historian Clinical information obtained from an independent historian. History obtained from or confirmed by: EMS External Record Review External record reviewed: Outpatient record Discharge Plan Discharge Clinical Impression: Crack cocaine use, Alcohol use disorder Prescriptions: No Action diclofenac sodium [Voltaren Arthritis Pain] 1 % gel 2 g topical QID PRN (Reason: pain, moderate) Qty: 100 0RF Rx Instructions: apply to bilateral feet multivitamin Tablet 1 tab PO DAILY cyclobenzaprine 10 mg Tablet 10 mg PO DAILY PRN (Reason: Spasms) atorvastatin 80 mg Tablet 80 mg PO DAILY acetaminophen 325 mg Tablet 650 mg PO Q6H PRN (Reason: Pain) melatonin 3 mg Tablet 3 mg PO BEDTIME PRN (Reason: insomnia ) divalproex 500 mg Tablet,Delayed Release (Dr/Ec) 500 mg PO BID aspirin 81 mg Tablet,Delayed Release (Dr/Ec) 81 mg PO DAILY quetiapine 100 mg Tablet 100 mg PO BEDTIME gabapentin 800 mg Tablet 800 mg PO TID lisinopril 10 mg Tablet 10 mg PO DAILY albuterol sulfate 90 mcg/actuation Hfa Aerosol Inhaler 2 puff INHALATION Q4-6H PRN (Reason: SOB) loratadine 10 mg Tablet 10 mg PO DAILY quetiapine 50 mg Tablet 50 mg PO DAILY Lactobacillus acidophilus 0.5 mg (100 million cell) Tablet 500 mg PO QID ibuprofen 400 mg Tablet 400 mg PO Q6H PRN (Reason: Pain) Print Language: Hebrew
--- NOTE | 2025-02-25 15:50 | MHC.CM.ED ---
Addendum entered by America Kulkarni 02/25/25 21:28: CARE team consult. Per CARE team. Will search for detox. CM will defer to CARE team Original Note: CM contacted [facility] at the request of Dr. Calero to ascertain patient status at facility. CM spoke with Olinda-real estate services administrator at [facility] ([phone]). Per Olinda, this patient signed herself out of the facility per protocol. She did not return. Took the bus to a crack house in [facility]. Then went to [facility] with medical complaints. Pt was discharged back to [facility] yesterday. Pt was requesting Detox. Per Olinda, pt has a long standing history of substance abuse. Pt is her own person. She does not have a guardian or invoked HCP. Her HCP is her sister, Neeta ([phone]). Her sister is very involved with this patient. Olinda feels this patient needs detox. She states the patient made many SI statements, but had no plan. Olinda stated that she could not admit a patient from their facility to detox, so she sent her to the ED for medical clearance.
--- NOTE | 2025-02-25 15:53 | MHC.EDTECH ---
Patient was changed into crisis attire, security at bedside to assist, pt was changed due to pt being an elopement risk, pt has walker,cane.glasses,and 2 books at bedside, All other belongings locked in the [place] shelf 3 pt has 4 bags total.
[2025-02-25 16:45] LABS: Appearance Urine Cloudy; Glucose Urine UA Negative (Negative); PH 5.5 (5.0-9.0); Specific Gravity - Urine >= 1.030 (1.005-1.025); UMIC TRIGGER UACC YES
[2025-02-25 16:48] LABS: UACC Culture Trigger YES
[2025-02-25 16:55] LABS: IDNOW Serial# 6674DD1D; Influenza B2 Negative (Negative)
[2025-02-25 17:28] LABS: MANUAL DIFF FLAG NO
[2025-02-25 17:30] LABS: Hematocrit 32.4 % (37.0-47.0); Hemoglobin 10.1 g/dl (12.0-16.0); Imm Gran Abs Auto 0.02 X10*3/uL (0.00-0.03); Imm Gran Pct Auto 0.2 % (0.0-0.4); Lymphocytes Absolute Auto 3.0 X10*3/uL (1.2-4.9); Mean Corpuscular HGB Conc 31.2 g/dl (31.0-35.0); Mean Corpuscular Hemoglobin 29.4 pg (27.0-33.0); Mean Corpuscular Volume 94.2 fL (80.0-98.0); NRBC Abs Auto 0.000 X10*3/uL (0.0-0.012); NRBC Pct Auto 0.0 /100WBC (0.0-0.2); Platelet Count 203 X10*3/uL (160-400); Red Blood Count 3.44 X10*6/uL (4.20-5.50); White Blood Count 8.6 X10*3/uL (4.8-10.8)
[2025-02-25 17:52] LABS: VBG HCO3 20 mmol/L (22-26); VBG O2 % Saturation 99.0 %
[2025-02-25 17:53] LABS: Alanine Aminotransferase 108 U/L (0-31); Albumin Level 4.6 g/dL (3.5-5.0); Alkaline Phosphatase 73 U/L (39-117); Anion Gap 16 (12-20); Aspartate Amino Transferase 197 U/L (5-31); Blood Urea Nitrogen 23 mg/dL (9-16); Calcium 9.4 mg/dL (8.4-10.2); Carbon Dioxide 22 mmol/L (22-29); Chloride 107 mmol/L (96-108); Creatinine Clr Calc Pharmacy 63.4; Estimated Glomerular Filt Rate 48; Magnesium 2.0 mg/dL (1.6-2.6); Potassium 4.0 mmol/L (3.3-5.1); Sodium 141 mmol/L (135-145); Total Protein 7.9 g/dL (6.5-8.0)
[2025-02-25 18:00] LABS: NT Pro B Type Natriuretic Pept 107.7 pg/mL (<300); Troponin-I High Sensitivity 4.3 ng/L (<3.5-17.0)
[2025-02-25 18:02] LABS: Venous Blood Gas Refer to POC result
[2025-02-25 19:37] VITALS: BP 133/75; PULSE 100; RESP 18; O2SAT 95
--- OUTSIDE RECORDS SUMMARY | 2025-02-25 20:16 | XMS_ITS | Patient Health Record ---
Author Organization [facility] Address [address] [place] [address] Care Team Providers Care Tin Can Feeder Name Role Phone David Gunn [facility] [place] [phone] [facility] Unavailable [phone] Reason For Referral No Information Plan Of Treatment No Information Insurance Providers Payer Name Payer Address Payer Phone Subscriber Number Group Number Insured Name Patient Relationship to Insured Coverage Start Date Coverage End Date [facility] [address] [place] [address] [id number] Lakia Zacarias Self - patient is the insured [place] Medicaid Standard [address] [place] [address] [id number] Lakia Zacarias Self - patient is the insured
--- NOTE | 2025-02-25 20:30 | MHC.EDTECH ---
patient is a 1 assist with walker or cane to the bathroom. I tried to redirect the patient about wearing hospital socks so she won't fall and she refused...nurse aware
[2025-02-25] MEDS: Sulfamethox/Trimeth 800/160 TABLET 1 TAB PO (21:26)
--- NOTE | 2025-02-25 21:57 | MHC.EDTECH ---
cane and walker placed in linen closet as pt is not allowed to have personal walker/cane. RN AWARE
[2025-02-25 22:13] LABS: Cannabinoid Screen Urine POSITIVE (Not Detect)
--- NOTE | 2025-02-26 00:25 | PC.NURSE ---
Presents with irritable edge and pressured speech. Hygiene appears intact, wearing hospital attire. C/o burning to bilateral feet and requested additional Capsaicin cream. Monzon made aware, t/w educated patient of scheduled medication times. Accepted HS scheduled medications along with PRN Melatonin. Mouth checks completed. 15 minute safety checks ongoing. Plan of care ongoing.
[2025-02-26 04:00] VITALS: RESP 18
[2025-02-26 06:20] VITALS: BP 125/73; PULSE 82; RESP 18; TEMP 36.7; O2SAT 96
--- NOTE | 2025-02-26 07:39 | PC.NURSE ---
Assumed care, report received. Pt is calm and cooperative, she ambulates to the BR with her walker, steady gait. She is brought her breakfast.
--- NOTE | 2025-02-26 08:09 | MHC.CARE ---
Called [facility]. they reported they have no record of receiving any referrals (Some difficulty with their systems), [facility] took a verbal referral via phone and will call when there are beds available.
[2025-02-26] MEDS: Aspirin Enteric Coated 81 MG TABLET.DR PO (08:42)
[2025-02-26] MEDS: Sulfamethox/Trimeth 800/160 TABLET 1 TAB PO ×2 (08:42→22:07)
--- NOTE | 2025-02-26 08:53 | MHC.EDTECH ---
Patient requesting book from belongings, hard cover book, missing front cover. This tech checked book and per RN okay to give to patient.
--- NOTE | 2025-02-26 10:58 | MHC.CARE ---
[facility] called, requested that pt's informatione be faxed.
--- NOTE | 2025-02-26 13:01 | MHC.CARE ---
Spoke with [facility], they are at capacity. Still awaiting RCA.
--- NOTE | 2025-02-26 13:26 | PHA.MEDREC ---
Addendum entered by Mary Martin RPh 02/26/25 14:16: MED REC REVIEWED BY [facility] Original Note: Pharmacy Consult ? Medication Reconciliation Pharmacy has reviewed the medication reconciliation done by nursing. utilized list from [facility] to confirm med list.
[2025-02-26 14:12] VITALS: BP 101/66; PULSE 89; RESP 18; TEMP 36.3; O2SAT 95
--- NOTE | 2025-02-26 19:27 | MHC.CARE ---
[facility], on [address] [place] [id number], would like to do an intake with pt. In the morning. Please call .
[2025-02-26 21:38] VITALS: BP 129/68; PULSE 93; RESP 20; TEMP 36.6; O2SAT 98
[2025-02-26 23:07] VITALS: RESP 18
[2025-02-27 06:16] VITALS: BP 138/76; PULSE 76; RESP 18; TEMP 36.3; O2SAT 97
--- NOTE | 2025-02-27 06:54 | MHC.CARE ---
Updated information sent to [facility].
--- NOTE | 2025-02-27 08:04 | PC.NURSE ---
Assumed care, report received. Pt is currently sleeping, safety maintained.
[2025-02-27] MEDS: Aspirin Enteric Coated 81 MG TABLET.DR PO (09:19)
[2025-02-27] MEDS: Sulfamethox/Trimeth 800/160 TABLET 1 TAB PO ×2 (09:21→20:14)
--- NOTE | 2025-02-27 09:44 | MHC.CARE ---
Pt was given the number for [facility] at 0830 and advised to call to do an intake.
--- NOTE | 2025-02-27 09:59 | MHC.CARE ---
Called [facility], pt is able to return. Process for obtaining a detox bed placement was explained. [facility] was advised that pt may be returning to [facility] if she is unable to be placed.
--- NOTE | 2025-02-27 10:44 | MHC.CARE ---
Follow nup call to [facility], they report they never received a fax for pt. After some searching they found the packet faxed this morning and are forwarding it on. They report fax issues recently.
--- NOTE | 2025-02-27 11:12 | MHC.CARE ---
[facility] called, they have denied admission as pt does not meet level of care. They suggest that pt may be a better fit for [facility] and stated that CARE Team should call Ericka at the [facility]. Care Team calls Ericka at the [facility], she reports they have no beds available.
--- NOTE | 2025-02-27 11:30 | MHC.CARE ---
Pt was given the number for [facility] at 0830 and advised to call to do an intake.? Pt called, spoke with [facility].? [facility] advised pt and RN that they need a packet of information sent.? CARE Team calls [facility], they report never having received wither of the faxed packets sent on previous days.? CARE Team resends the information to [facility] and calls to confirm receipt of the packet.? [facility] reports receiving the information. CARE Team asks to confirm that an intake was done.? [facility] reports there was no intake conducted as they had not received any information prior. Of note, information for a potential admission was faxed twice before this most recent faxing.
--- NOTE | 2025-02-27 13:36 | MHC.CARE ---
Called [facility], they are reviewing pt and have a female bed available. CARE Team's phone number was given for a call back.
--- NOTE | 2025-02-27 15:13 | MHC.CARE ---
Clinician called [facility] to follow up @ 15:00; they reported patient was medically accepted however, has to be reviewed to see if she is clinically appropriate. Please f/u on second shift by calling [facility] at [phone].
--- NOTE | 2025-02-27 19:50 | MHC.CARE ---
T/W attempted to call and follow up with [facility]. They reported that they are still awaiting psychiatry to review to determine if patient is appropriate.
--- NOTE | 2025-02-27 21:49 | MHC.CARE ---
T/W spoke to [email or web address], unable to provide any update. Admissions at [facility] told CARE Team to follow up in the A.M between 7:30 & 8 A.M. [phone]
[2025-02-27 22:00] VITALS: RESP 18
--- NOTE | 2025-02-27 22:57 | PC.NURSE ---
A&Ox4. Presents as calm and cooperative. Pressured speech. Visible in room, watching tv, praying, and reading a book. Adherent to HS scheduled medications. C/o 6/10 pain to bilateral feet. MD Campo made aware, PRN Tylenol order obtained with good effect. Agreeable to alert staff if feeling unsafe. 15 minute safety checks ongoing. Plan of care ongoing.
[2025-02-28 05:37] VITALS: RESP 18
[2025-02-28 05:48] VITALS: BP 139/79; PULSE 87; RESP 18; TEMP 36.6; O2SAT 98
--- NOTE | 2025-02-28 07:38 | PC.NURSE ---
Assumed care of patient at 0645, patient appears to be in no apparent distress this am, calm and cooperative, resting in bed, respirations even and unlabored. Continue plan of care for detox bedsearch
[2025-02-28] MEDS: Aspirin Enteric Coated 81 MG TABLET.DR PO (08:27)
[2025-02-28] MEDS: Sulfamethox/Trimeth 800/160 TABLET 1 TAB PO (08:27)
--- NOTE | 2025-02-28 08:58 | MHC.CARE ---
Pt will be discharged back to her rest home. ED provider in agreement.
[2025-02-28 09:45] VITALS: BP 139/79; PULSE 87; RESP 18; TEMP 36.6; O2SAT 98
--- NOTE | 2025-03-01 16:16 | ED.GENADULT ---
HPI - General Adult General Chief complaint: General Medical Stated complaint: ETOH Time Seen by Provider: 02/25/25 14:18 Source: patient and old records reviewed Mode of arrival: ambulatory Limitations: no limitations History of Present Illness Relieving factors: none Exacerbating factors: other Associated symptoms: shortness of breath Treatments prior to arrival: none Related Data Home Medications ?Medication ?Instructions ?Recorded ?Confirmed Lactobacillus acidophilus 0.5 mg 500 mg PO QID 02/25/25 02/25/25 (100 million cell) tablet acetaminophen 325 mg tablet 650 mg PO Q6H PRN Pain 02/25/25 02/25/25 albuterol sulfate 90 mcg/actuation 2 puff inhalation Q4-6H PRN SOB 02/25/25 02/25/25 aerosol inhaler aspirin 81 mg tablet,delayed 81 mg PO DAILY 02/25/25 02/25/25 release atorvastatin 80 mg tablet 80 mg PO DAILY 02/25/25 02/25/25 cyclobenzaprine 10 mg tablet 10 mg PO DAILY PRN Spasms 02/25/25 02/26/25 divalproex 500 mg tablet,delayed 500 mg PO BID 02/25/25 02/25/25 release gabapentin 800 mg tablet 800 mg PO TID 02/25/25 02/25/25 ibuprofen 400 mg tablet 400 mg PO Q6H PRN Pain 02/25/25 02/25/25 lisinopril 10 mg tablet 10 mg PO DAILY 02/25/25 02/25/25 loratadine 10 mg tablet 10 mg PO DAILY 02/25/25 02/25/25 melatonin 3 mg tablet 3 mg PO BEDTIME PRN insomnia 02/25/25 02/25/25 multivitamin 1 tab PO DAILY 02/25/25 02/25/25 quetiapine 100 mg tablet 100 mg PO BEDTIME 02/25/25 02/25/25 quetiapine 50 mg tablet 50 mg PO DAILY 02/25/25 02/25/25 Previous Rx's ?Medication ?Instructions ?Recorded diclofenac sodium 1 % topical gel 2 g topical QID PRN pain, moderate 12/22/24 (Voltaren Arthritis Pain) #100 grams sulfamethoxazole 800 1 tab PO BID 4 days #8 tabs 02/28/25 mg-trimethoprim 160 mg tablet (Bactrim DS) Allergies Allergy/AdvReac Type Severity Reaction Status Date / Time Opioids-Meperidine and Allergy Unknown Verified 02/25/25 15:07 Related FOR[facility] Past Medical History Medical History Fibromyalgia Asthma Alcohol use disorder HTN (hypertension) Social History Social History (Updated 02/25/25 @ 15:28 by Stefanie Calero DO) Unable to assess alcohol history related to: Unknown Patient Tobacco Use Status: Tobacco use Unknown Use of substances other than those prescribed or required for medical reasons: Yes Substance Use Type: Crack/Cocaine Advance Directives: Yes Advance Directives Information Provided: Yes Advance Directives on File: Yes Advance Directives Date on File: 12/31/24 Do you have a plan to hurt others: No Plan Patient : No Physical Exam ED Vital Signs: BMI result Body Mass Index 36.8 Medications Administered Discontinued Medications Generic Name Dose Route Start Last Admin Trade Name Freq PRN Reason Stop Dose Admin Acetaminophen 650 mg 02/25/25 21:19 02/25/25 21:26 Acetaminophen 325 Mg Tablet PO 02/25/25 21:20 650 mg ONCE ONE Administration Acetaminophen 975 mg 02/26/25 22:05 02/26/25 22:13 Acetaminophen 325 Mg Tablet PO 02/26/25 22:06 975 mg ONCE ONE Administration Acetaminophen 650 mg 02/27/25 20:31 02/27/25 20:39 Acetaminophen 325 Mg Tablet PO 650 mg Q6H PRN Administration Pain, Moderate(Pain Scale 4-6) Aspirin 81 mg 02/26/25 09:00 02/28/25 08:27 Aspirin Enteric Coated 81 Mg Tablet. PO 81 mg DAILY RAFA Administration Atorvastatin Calcium 80 mg 02/26/25 09:00 02/28/25 08:27 Atorvastatin Calcium 80 Mg Tablet PO 80 mg DAILY RAFA Administration Capsaicin 1 appl 02/25/25 20:42 02/28/25 08:34 Capsaicin 0.075% Cream 57 Gm Tube TOPICAL 1 appl TID PRN Administration Pain, Mild (Pain Scale 1-3) Divalproex Sodium 500 mg 02/25/25 22:45 02/28/25 08:27 Divalproex Sodium 500 Mg Tablet. PO 500 mg BID RAFA Administration Gabapentin 800 mg 02/25/25 22:45 02/28/25 08:27 Gabapentin 400 Mg Capsule PO 800 mg TID RAFA Administration Lisinopril 10 mg 02/26/25 09:00 02/28/25 08:27 Lisinopril 10 Mg Tablet PO 10 mg DAILY RAFA Administration Protocol Loratadine 10 mg 02/26/25 09:00 02/28/25 08:27 Loratadine 10 Mg Tablet PO 10 mg DAILY RAFA Administration Melatonin 6 mg 02/25/25 21:46 02/25/25 23:16 Melatonin 3 Mg Tablet PO 02/25/25 21:47 6 mg ONCE ONE Administration Melatonin 3 mg 02/25/25 22:33 02/26/25 22:07 Melatonin 3 Mg Tablet PO 3 mg BEDTIME PRN Administration insomnia Multivitamins/Vitamin C 1 tab 02/26/25 09:00 02/28/25 08:27 Multivitamin Tablet PO 1 tab DAILY RAFA Administration Quetiapine Fumarate 50 mg 02/26/25 09:00 02/28/25 08:27 Quetiapine Fumarate 50 Mg Tablet PO 50 mg DAILY RAFA Administration Quetiapine Fumarate 100 mg 02/25/25 22:45 02/27/25 20:14 Quetiapine Fumarate 100 Mg Tablet PO 100 mg BEDTIME RAFA Administration Trimethoprim/Sulfamethoxazole 1 tab 02/25/25 21:00 02/28/25 08:27 Sulfamethox/Trimeth 800/160 Tablet PO 03/01/25 09:00 1 tab BID RAFA Administration Medical Decision Making Lab Data 02/25/25 17:11 Labs: Lab Results 02/25/25 02/25/25 02/25/25 Range/Units 16:27 17:11 17:26 WBC 8.6 (4.8-10.8) X10*3/uL RBC 3.44 L (4.20-5.50) X10*6/uL Hgb 10.1 L (12.0-16.0) g/dl Hct 32.4 L (37.0-47.0) % MCV 94.2 (80.0-98.0) fL MCH 29.4 (27.0-33.0) pg MCHC 31.2 (31.0-35.0) g/dl RDW 14.5 (11.0-16.0) % Plt Count 203 (160-400) X10*3/uL MPV 11.6 (9.4-12.3) fL Immature Gran % (Auto) 0.2 (0.0-0.4) % Neut % (Auto) 55.7 (45-73) % Lymph % (Auto) 34.5 (20-40) % Avery % (Auto) 6.9 (2-11) % Eos % (Auto) 2.2 (0-4) % Baso % (Auto) 0.5 (0-2) % Lymph # (Auto) 3.0 (1.2-4.9) X10*3/uL Avery # (Auto) 0.6 (0.1-1.2) X10*3/uL Eos # (Auto) 0.2 (0.0-0.4) X10*3/uL Baso # (Auto) 0.0 (0.0-0.2) X10*3/uL Abs Immat Gran (auto) 0.02 (0.00-0.03) X10*3/uL Absolute Neuts (auto) 4.8 (2.0-8.3) x10*3/uL Absolute Nucleated RBC 0.000 (0.0-0.012) X10*3/uL Nucleated RBC % (auto) 0.0 (0.0-0.2) /100WBC VBG pH 7.44 H (7.32-7.43) VBG pCO2 29 mmHg VBG pO2 96 mmHg VBG HCO3 20 L (22-26) mmol/L VBG O2 Saturation 99.0 % VBG Base Excess -2.4 mmol/L Sodium 141 (135-145) mmol/L Potassium 4.0 (3.3-5.1) mmol/L Chloride 107 (96-108) mmol/L Carbon Dioxide 22 (22-29) mmol/L Anion Gap 16 (12-20) BUN 23 H (9-16) mg/dL Creatinine 1.14 (0.5-1.4) mg/dL Estim Creat Clear Calc 63.4 Estimated GFR 48 Random Glucose 103 (60-115) mg/dL Calcium 9.4 (8.4-10.2) mg/dL Magnesium 2.0 (1.6-2.6) mg/dL Total Bilirubin 0.2 (0.0-1.0) mg/dL Direct Bilirubin < 0.2 (0.0-0.5) mg/dL AST 197 H (5-31) U/L ALT 108 H (0-31) U/L Alkaline Phosphatase 73 (39-117) U/L Troponin I High Sens 4.3 (<3.5-17.0) ng/L NT-Pro-B Natriuret Pep 107.7 (<300) pg/mL Total Protein 7.9 (6.5-8.0) g/dL Albumin 4.6 (3.5-5.0) g/dL Urine Color Dark Yellow Urine Appearance Cloudy Urine pH 5.5 (5.0-9.0) Ur Specific [place] >= 1.030 H (1.005-1.025) Urine Protein Trace (Neg-Trace) mg/dL Urine Glucose (UA) Negative (Negative) mg/dL Urine Ketones Trace (Negative) mg/dL Urine Blood Negative (Negative) Urine Nitrite Negative (Negative) Ur Leukocyte Esterase Moderate (2+) H (Negative) Urine RBC 0-2 (0-2) /HPF Urine WBC >50 H (0-5) /HPF Ur Squamous Epith Cells 6-10 (0-2) /HPF Urine Bacteria 1+ (None Seen) Hyaline Casts 3-5 (0-2) /LPF Urine Opiates Screen Not Detected (Not Detect) Ur Buprenorphine Scrn Not Detected (Not Detect) ng/mL Ur Oxycodone Screen Not Detected (Not Detect) ng/mL Urine Methadone Screen Not Detected (Not Detect) ng/mL Urine Fentanyl Screen Not Detected (Not Detect) Ur Barbiturates Screen Not Detected (Not Detect) Ur Phencyclidine Scrn Not Detected (Not Detect) Ur Amphetamines Screen Not Detected (Not Detect) U Benzodiazepines Scrn Not Detected (Not Detect) Urine Cocaine Screen POSITIVE H (Not Detect) U Marijuana (THC) Screen POSITIVE H (Not Detect) Ethyl Alcohol 11 mg/dL Influenza Type A (SARABJIT) Negative (Negative) Influenza Type B (SARABJIT) Negative (Negative) Influenza A & B Note See Note Discharge Plan Discharge Clinical Impression: Crack cocaine use, Alcohol use disorder, Acute UTI Patient Disposition: Home, Self-Care Instructions: Urinary Tract Infection in Women (ED), Cocaine Use Disorder (ED), Alcohol Use Disorder (ED) Additional Instructions: return for any worsening symptoms or concerns Alcohol use disorder You were seen in the Emergency Department today for treatment of alcohol use disorder.? You may have been given medications to help with your withdrawal symptoms.? Please do not drink alcohol with them. This is very dangerous and can cause respiratory depression or other adverse reactions depending on the medication. If you would like to cut down or stop your alcohol use please consider calling our outpatient Addiction Treatment office:? [facility] (-F [id number]) [address] [place] [address] [address] You have also been given a list of treatment providers in the area that can assist as well.? If you experience seizures, vomiting blood, black stools, falls, severe headache, chest pain, fevers, trouble breathing, hallucinations or any other concerns you need to call 911 or seek immediate care. Please stay hydrated. Prescriptions: New sulfamethoxazole-trimethoprim [Bactrim DS] 800-160 mg tablet 1 tab PO BID 4 Days Qty: 8 0RF No Action diclofenac sodium [Voltaren Arthritis Pain] 1 % gel 2 g topical QID PRN (Reason: pain, moderate) Qty: 100 0RF Rx Instructions: apply to bilateral feet multivitamin Tablet 1 tab PO DAILY cyclobenzaprine 10 mg Tablet 10 mg PO DAILY PRN (Reason: Spasms) atorvastatin 80 mg Tablet 80 mg PO DAILY acetaminophen 325 mg Tablet 650 mg PO Q6H PRN (Reason: Pain) melatonin 3 mg Tablet 3 mg PO BEDTIME PRN (Reason: insomnia ) divalproex 500 mg Tablet,Delayed Release (Dr/Ec) 500 mg PO BID aspirin 81 mg Tablet,Delayed Release (Dr/Ec) 81 mg PO DAILY quetiapine 100 mg Tablet 100 mg PO BEDTIME gabapentin 800 mg Tablet 800 mg PO TID lisinopril 10 mg Tablet 10 mg PO DAILY albuterol sulfate 90 mcg/actuation Hfa Aerosol Inhaler 2 puff INHALATION Q4-6H PRN (Reason: SOB) loratadine 10 mg Tablet 10 mg PO DAILY quetiapine 50 mg Tablet 50 mg PO DAILY Lactobacillus acidophilus 0.5 mg (100 million cell) Tablet 500 mg PO QID ibuprofen 400 mg Tablet 400 mg PO Q6H PRN (Reason: Pain) Interventions: ED Discharge Assessment Last Done: 02/28/25 09:45 Discharge Date/Time: 02/28/25 09:46 Print Language: Polish
== END 2025-02-28 09:46 | disposition home or self-care (01) ==
PROVIDERS: Emergency Medicine; Emergency Provider Emergency Medicine Emergency Medical Services; PCP Internal Medicine
DX: F10.10 Alcohol abuse, uncomplicated (principal); F14.10 Cocaine abuse, uncomplicated; I10 Essential (primary) hypertension
CPT/HCPCS: 36415; 71045; 80048; 80076; 80307; 81001; 82803; 83735; 83880; 84484; 85025; 87086; 87088; 87186; 87502; 93005; 99285; S9485

== ENCOUNTER → 2025-02-25 14:43 | Outpatient (BNV) | payer MEDICAID, SELFPAY | PROVIDERS: Emergency Provider Emergency Medicine Emergency Medical Services; PCP Internal Medicine; Visit Provider Internal Medicine Cardiovascular Disease | DX: R06.02 Shortness of breath (principal) | CPT/HCPCS: 93010 ==

== ENCOUNTER → 2025-02-25 14:44 | Outpatient (BNV) | payer MEDICAID, SELFPAY | PROVIDERS: Emergency Provider Emergency Medicine Emergency Medical Services; PCP Internal Medicine; Visit Provider Radiology Diagnostic Radiology | DX: R06.00 Dyspnea, unspecified (principal) | CPT/HCPCS: 71045 ==

== ENCOUNTER 2025-03-06 14:13 | Emergency (ER) | payer MEDICAID, SELFPAY ==
[2025-03-06 14:21] VITALS: BP 152/95; PULSE 95; O2SAT 98
[2025-03-06 14:26] VITALS: BP 100/67; PULSE 93; RESP 18; TEMP 37.1; O2SAT 99; BMI 37.8
--- NOTE | 2025-03-06 14:57 | PC.NURSE ---
This RN confirmed with Boogie Garcia [facility] RN, pt did receive 800mg of Gabapentin @ 1200pm along with tylenol. Per facilty- pt also confused/forgetful at baseline. Ruthie ULLOA at bedside for assessment.
--- NOTE | 2025-03-06 15:48 | ED.GENADULT ---
HPI - General Adult General Chief complaint: General Medical Stated complaint: PT CALLED 911 FROM [facility] FOR HER FIBROMYALGIA MEDS Time Seen by Provider: 03/06/25 14:32 Source: patient, EMS and RN notes reviewed Mode of arrival: EMS Limitations: no limitations History of Present Illness ED Provider: Ruthie Cheatham PA-C HPI narrative: This is a 65-year-old female, ETOH use disorder, fibromyalgia, asthma, HTN, she resides at [facility], who presents emergency department via EMS from [facility] with concerns of her facility not medicating her with her fibromyalgia medication. Patient states that she is currently on gabapentin 800 milligrams 3 times a day and patient states that for her afternoon dose she was only given Tylenol and not gabapentin. She states that she continues to have her chronic fibromyalgia pain, in his requesting to have her gabapentin dose. She states that she has had no changes to her fibromyalgia pain, she denies any fevers, chills, chest pain, shortness of breath, abdominal pain, nausea, vomiting or diarrhea. No other complaints or concerns at this time. MD complaint: Medication dosing, fibromyalgia pain Relieving factors: none Exacerbating factors: none Associated symptoms: denies other symptoms Treatments prior to arrival: none Related Data Home Medications ?Medication ?Instructions ?Recorded ?Confirmed Lactobacillus acidophilus 0.5 mg 500 mg PO QID 02/25/25 02/25/25 (100 million cell) tablet acetaminophen 325 mg tablet 650 mg PO Q6H PRN Pain 02/25/25 02/25/25 albuterol sulfate 90 mcg/actuation 2 puff inhalation Q4-6H PRN SOB 02/25/25 02/25/25 aerosol inhaler aspirin 81 mg tablet,delayed 81 mg PO DAILY 02/25/25 02/25/25 release atorvastatin 80 mg tablet 80 mg PO DAILY 02/25/25 02/25/25 cyclobenzaprine 10 mg tablet 10 mg PO DAILY PRN Spasms 02/25/25 02/26/25 divalproex 500 mg tablet,delayed 500 mg PO BID 02/25/25 02/25/25 release gabapentin 800 mg tablet 800 mg PO TID 02/25/25 02/25/25 ibuprofen 400 mg tablet 400 mg PO Q6H PRN Pain 02/25/25 02/25/25 lisinopril 10 mg tablet 10 mg PO DAILY 02/25/25 02/25/25 loratadine 10 mg tablet 10 mg PO DAILY 02/25/25 02/25/25 melatonin 3 mg tablet 3 mg PO BEDTIME PRN insomnia 02/25/25 02/25/25 multivitamin 1 tab PO DAILY 02/25/25 02/25/25 quetiapine 100 mg tablet 100 mg PO BEDTIME 02/25/25 02/25/25 quetiapine 50 mg tablet 50 mg PO DAILY 02/25/25 02/25/25 Previous Rx's ?Medication ?Instructions ?Recorded diclofenac sodium 1 % topical gel 2 g topical QID PRN pain, moderate 12/22/24 (Voltaren Arthritis Pain) #100 grams sulfamethoxazole 800 1 tab PO BID 4 days #8 tabs 02/28/25 mg-trimethoprim 160 mg tablet (Bactrim DS) Allergies Allergy/AdvReac Type Severity Reaction Status Date / Time Opioids-Meperidine and Allergy Unknown Verified 03/06/25 14:30 Related Review of Systems Review of Systems: Constitutional : No Fever, No Chills ENT/Mouth : No sore throat, No Rhinorrhea Eyes: No Eye Pain, No Swelling, No Redness Cardiovascular : No Chest Pain, No SOB Respiratory : No Cough, No Sputum Gastrointestinal : No Nausea, No Vomiting, No Diarrhea, No abdominal Pain Genitourinary : No Dysuria, No Hematuria Musculoskeletal : No joint pain, + Myalgias, No Joint Swelling Skin : No Skin Lesions, Neuro : No Weakness, No Numbness, No Headache All other systems reviewed and are negative Yes all other systems are reviewed and are negative Constitutional: Constitutional: Reports as per [facility] Past Medical History Medical History Fibromyalgia Asthma Alcohol use disorder HTN (hypertension) Social History Social History (Updated 02/25/25 @ 15:28 by Stefanie Calero DO) Patient Tobacco Use Status: Tobacco use Unknown Smoked in Last 30 Days: No Use of substances other than those prescribed or required for medical reasons: No Substance Use Type: Crack/Cocaine Advance Directives: Yes Advance Directives on File: Yes Advance Directives Date on File: 12/31/24 Patient : No Physical Exam ED Exam Exam: General: Awake, alert, and oriented X3. No acute distress. HEENT: Normal inspection CVS: Normal heart rate and rhythm. Pulses normal. Respiratory: No respiratory distress Skin: Warm, dry, no rashes noted to exposed skin. Normal skin color. Normal skin turgor. Extremities: Moving all extremities well Neuro: Oriented X 3. No motor deficit. No sensory deficit. Vital Signs: Vital Signs - 24 hr 03/06/25 14:26 03/06/25 16:59 03/06/25 17:00 Temperature 98.7 F 98.7 F Pulse Rate 93 86 86 Respiratory Rate 18 18 18 Blood Pressure 100/67 110/67 110/67 Pulse Oximetry 99 96 96 Oxygen Delivery Method Room Air Room Air Room Air BMI result Body Mass Index 37.8 Medications Administered Discontinued Medications Generic Name Dose Route Start Last Admin Trade Name Freq PRN Reason Stop Dose Admin Ketorolac Tromethamine 15 mg 03/06/25 15:02 03/06/25 15:30 Ketorolac Tromethamine 15 Mg/Ml Vial IM 03/06/25 15:03 15 mg ONCE ONE Administration Medical Decision Making Medical Decision Making MDM Narrative: This is a 65-year-old female, with a past medical history of ETOH use disorder, fibromyalgia, asthma, HTN, who presents emergency department via EMS from [facility] with concerns of fibromyalgia pain. On arrival, vital signs within normal limits. She is speaking full sentences under no acute distress. Her pain that she is currently experiencing is consistent with her fibromyalgia pain - no changes to this chronic pain that she has. Patient states that she was not given her regular gabapentin 800 milligram dosing and wants to be dosed here for her medication. We called over to the facility, and they did in fact give her her gabapentin dose. We also gave her Tylenol. Patient states that they only gave her Tylenol and not the gabapentin. I discussed with patient that we are unable to dose her with more gabapentin as the facility did state that she was dose for this medication and can be very forgetful. Discussed with patient that we can medicate with 1 time dose of Toradol for her fibromyalgia pain. >> patient is feeling much better after receiving Toradol injection. Patient given strict return precautions, she was transported back to her [facility]. Differential Diagnosis Differential Diagnoses: The differential diagnosis associated with the presentation includes Medication refill, medication noncompliance, fibromyalgia, myalgia Discharge Plan Discharge Clinical Impression: Fibromyalgia Patient Disposition: er [facility] Instructions: Fibromyalgia (ED) Additional Instructions: You were seen in the emergency department as you were concerned that your facility did not medicate you with your normal gabapentin dosage. We called your facility and they informed us that they gave you Tylenol as well as gabapentin at noon today. We are unable to dose you in addition to this. We gave you a dose of Toradol, this is an injection to help with pain. Do not take any NSAIDS tonight. Please continue all at-home medications as prescribed. If any new or worsening symptoms occur including but not limited more consistent breath for please seek emergent care. Prescriptions: No Action diclofenac sodium [Voltaren Arthritis Pain] 1 % gel 2 g topical QID PRN (Reason: pain, moderate) Qty: 100 0RF Rx Instructions: apply to bilateral feet multivitamin Tablet 1 tab PO DAILY cyclobenzaprine 10 mg Tablet 10 mg PO DAILY PRN (Reason: Spasms) atorvastatin 80 mg Tablet 80 mg PO DAILY acetaminophen 325 mg Tablet 650 mg PO Q6H PRN (Reason: Pain) melatonin 3 mg Tablet 3 mg PO BEDTIME PRN (Reason: insomnia ) divalproex 500 mg Tablet,Delayed Release (Dr/Ec) 500 mg PO BID aspirin 81 mg Tablet,Delayed Release (Dr/Ec) 81 mg PO DAILY quetiapine 100 mg Tablet 100 mg PO BEDTIME gabapentin 800 mg Tablet 800 mg PO TID lisinopril 10 mg Tablet 10 mg PO DAILY albuterol sulfate 90 mcg/actuation Hfa Aerosol Inhaler 2 puff INHALATION Q4-6H PRN (Reason: SOB) loratadine 10 mg Tablet 10 mg PO DAILY quetiapine 50 mg Tablet 50 mg PO DAILY Lactobacillus acidophilus 0.5 mg (100 million cell) Tablet 500 mg PO QID ibuprofen 400 mg Tablet 400 mg PO Q6H PRN (Reason: Pain) sulfamethoxazole-trimethoprim [Bactrim DS] 800-160 mg tablet 1 tab PO BID 4 Days Qty: 8 0RF Interventions: ED Discharge Assessment Last Done: 03/06/25 17:00 Discharge Date/Time: 03/06/25 17:00 Print Language: Thai
[2025-03-06 16:59] VITALS: BP 110/67; PULSE 86; RESP 18; O2SAT 96
[2025-03-06 17:00] VITALS: BP 110/67; PULSE 86; RESP 18; TEMP 37.1; O2SAT 96
--- OUTSIDE RECORDS SUMMARY | 2025-03-06 19:51 | XMS_ITS | Clinical Summary ---
Author Organization [facility] Address [address] [place] [address] Phone Care Team Providers Care Medical Translator Name Role Phone Physician, Pcp Unknown Primary Care Provider Jennifer vailable Allergies Active Allergy Reactions Criticality Noted Date Comments Morphine Other High 02/24/2025 Reports opiates can kill me Encounters Date Type Department Care Team Description 02/24/2025 5:39 PM EDT - 02/24/2025 11:[address] [facility] [address] [place] [address] Stephanie Villareal MD Kokkinos, Erika, MD Cocaine use (Primary Dx); Alcohol use; Marijuana use; Housing insecurity Discharge Disposition: Home or Self Care from Last 3 Months Social History Tobacco Use Types Packs/Day Years Used Date Smoking Tobacco: Never Assessed Comments Unknown Sex and Gender Information Value Date Recorded Sex Assigned at Not on file Legal Sex Female 1:36 AM EST Gender Identity Not on file Sexual Orientation Not on file Last Filed Vital Signs Vital Sign Reading Time Taken Comments Blood Pressure 150/87 02/24/2025 5:42 PM EDT Pulse 91 02/24/2025 6:04 PM EDT Temperature 37.6 C (99.7 F) 02/24/2025 5:42 PM EDT Respiratory Rate 20 02/24/2025 5:42 PM EDT Oxygen Saturation 98% 02/24/2025 5:42 PM EDT Inhaled Oxygen Concentration - - Weight 113 kg (250 lb) 02/24/2025 5:42 PM EDT Height 167.6 cm (5' 6 ) 02/24/2025 5:42 PM EDT Body Mass Index 40.35 02/24/2025 5:42 PM EDT Plan of Treatment Health Maintenance Due Date Last Done Comments Breast Cancer Screening 1962 Colorectal Cancer Screening: Colonoscopy 1962 DTaP,Tdap,and Td Vaccines (1 - Tdap) 1981 Cervical Cancer Screening: P ap Smear 1983 Pneumococcal Vaccine: 50+ Ye ars (1 of 1 - PCV) 01/31/2012 RSV Immunization Adult Patie nts (1 - Risk 50-74 years 1-dose series) 01/31/2012 Zoster Vaccines (1 of 2) 01/31/2012 Depression Screening 05/09/2024 COVID-19 Vaccine (1 - 2023-2 5 season) 2025 Influenza Vaccine (#1) 2025 HIV Screening 02/24/2025 Hepatitis C Screening 02/24/2025 Social Influencers of Health Screening 02/24/2025 HIB Vaccines Aged Out No longer eligi ble based on patient's age to complete this topic HPV Vaccines Aged Out No longer eligi ble based on patient's age to complete this topic Hepatitis A Vaccines Aged Out No long er eligible based on patient's age to complete this topic Hepatitis B Vaccines Aged Out No long er eligible based on patient's age to complete this topic IPV Vaccines Aged Out No longer eligi ble based on patient's age to complete this topic MMR Vaccines Aged Out No longer eligi ble based on patient's age to complete this topic Meningococcal ACWY Vaccine Aged Out N o longer eligible based on patient's age to complete this topic Meningococcal B Vaccine Aged Out No l onger eligible based on patient's age to complete this topic RSV Immunization Patients Un shan 20 months Aged Out No longer eligible b ased on patient's age to complete this topic Varicella Vaccines Aged Out No longer eligible based on patient's age to complete this topic Procedures Procedure Name Priority Date/Time Associated Diagnosis Comments ECG ANNOTATED 02/25/2025 ECG 12-LEAD STAT 02/24/2025 7:17 PM EDT ETHANOL STAT 02/24/2025 6:50 PM EDT COMPLETE BLOOD COUNT STAT 02/24/2025 6:50 PM EDT BASIC METABOLIC PANEL STAT 02/24/2025 6:50 PM EDT TROPONIN I HIGH SENSITIVITY STAT 02/24/2025 6:50 PM EDT from Last 3 Months Results * ECG-Annotated (02/25/2025) Genesis Mitchell MD ECG ORDERABLES Final Result * 12-Lead ECG (02/24/2025 7:17 PM EDT) [facility] Ventricular Rate ECG 89 BPM GEMUSE Atrial Rate 89 BPM GEMUSE P-R Interval 136 ms GEMUSE QRS Duration 68 ms GEMUSE Q-T Interval 402 ms GEMUSE QTc 489 ms GEMUSE P Wave [place] 59 degrees GEMUSE R [place] 34 degrees GEMUSE T [place] 16 degrees GEMUSE ECG Interpretation Normal sinus rhythm Nonspecific ST and T wave abnormality When compared with ECG of 03-JUL-1998 17:41, T wave amplitude has decreased in Inferior leads Nonspecific T wave abnormality now evident in Anterolateral leads Confirmed by SONDRA DÍAZ ([id number]) on 02/26/2025 8:47:33 AM GEMUSE 02/24/2025 7:17 PM EDT 02/26/2025 8:47 AM EDT Stephanie Villareal MD ECG ORDERABLES Final Result GEMUSE * Troponin I High Sensitivity (02/24/2025 6:50 PM EDT) [facility] High Sensitivity Troponin I 21 <=54 ng/L LAB CHEMISTRY METHOD 02/24/2025 7:42 PM EDT [facility] Blood Venous blood specimen / Unknown Venipuncture / Unknown 02/24/2025 6:50 PM EDT 02/24/2025 7:13 PM EDT Narrative [facility] - 02/24/2025 7:42 PM EDT High levels of biotin in samples may falsely decrease hsTroponin values. Use caution when interpreting hsTroponin results in patients taking biotin who exhibit renal impairment (eGFR <60) or in patients taking more than 20 mg/day of biotin. us Stephanie Villareal MD LAB BLOOD ORDERABLES Final Resul t [facility] [address] [place] [address], * (ABNORMAL) CBC (02/24/2025 6:50 PM EDT) [facility] WBC 11.4(H) 4.8 - 10.8 K/mcL LAB HEMETOLOGY METHOD 02/24/2025 7:23 PM EDT [facility] RBC 3.90 3.80 - 4.80 M/mcL LAB HEMETOLOGY METHOD 02/24/2025 7:23 PM EDT [facility] Hemoglobin 11.6 11.5 - 16.0 g/dL LAB HEMETOLOGY METHOD 02/24/2025 7:23 PM EDT [facility] Hematocrit 36.7 35.0 - 47.0 % LAB HEMETOLOGY METHOD 02/24/2025 7:23 PM EDT [facility] MCV 93.4 79.0 - 98.0 FL LAB HEMETOLOGY METHOD 02/24/2025 7:23 PM EDT [facility] MCH 29.5 27.0 - 32.0 pcg LAB HEMETOLOGY METHOD 02/24/2025 7:23 PM EDT [facility] MCHC 31.6(L) 32.0 - 37.0 g/dL LAB HEMETOLOGY METHOD 02/24/2025 7:23 PM EDT [facility] RDW 14.5 11.0 - 15.0 % LAB HEMETOLOGY METHOD 02/24/2025 7:23 PM EDT [facility] Platelets 241 130 - 400 K/mcL LAB HEMETOLOGY METHOD 02/24/2025 7:23 PM EDT [facility] MPV 11.7(H) 7.0 - 11.0 FL LAB HEMETOLOGY METHOD 02/24/2025 7:23 PM EDT [facility] NRBC 0.0 <1.0 % LAB HEMETOLOGY METHOD 02/24/2025 7:23 PM EDT [facility] NRBC Absolute 0.00 <0.10 K/mcL LAB HEMETOLOGY METHOD 02/24/2025 7:23 PM EDT [facility] Blood Venous blood specimen / Unknown Venipuncture / Unknown 02/24/2025 6:50 PM EDT 02/24/2025 7:13 PM EDT us Stephanie Villareal MD LAB BLOOD ORDERABLES Final Resul t Performing Organization Address City/[facility]/ZIP Co de Phone Number [facility] [address] [place] [address], [place] [phone] * Ethanol (02/24/2025 6:50 PM EDT) Ethanol Level <3 0 - 10 mg/dL LAB CHEMISTRY METHOD 02/24/2025 7:40 PM EDT [facility] Blood Venous blood specimen / Unknown Venipuncture / Unknown 02/24/2025 6:50 PM EDT 02/24/2025 7:13 PM EDT us Stephanie Villareal MD LAB BLOOD ORDERABLES Final Resul t [facility] [address] [place] [address], [place] [phone] * (ABNORMAL) Basic Metabolic Panel (BMP) (02/24/2025 6:50 PM EDT) Sodium 136 133 - 145 mmol/L LAB CHEMISTRY METHOD 02/24/2025 7:40 PM EDT [facility] Potassium 4.6 3.5 - 5.5 mmol/L LAB CHEMISTRY METHOD 02/24/2025 7:40 PM EDT [facility] Comment:Hemolysis present Chloride 104 96 - 110 mmol/L LAB CHEMISTRY METHOD 02/24/2025 7:[address] [facility] CO2 26 21 - 32 mmol/L LAB CHEMISTRY METHOD 02/24/2025 7:40 PM EDT [facility] Anion Gap 6 3 - 11 LAB CHEMISTRY METHOD 02/24/2025 7:40 PM EDT [facility] Glucose 102(H) 70 - 100 mg/dL LAB CHEMISTRY METHOD 02/24/2025 7:[address] [facility] BUN 21 5 - 25 mg/dL LAB CHEMISTRY METHOD 02/24/2025 7:[address] [facility] Creatinine 0.97 0.50 - 1.10 mg/dL LAB CHEMISTRY METHOD 02/24/2025 7:40 PM T [facility] eGFR 66 >=60 mL/min/1. 73m2 LAB CHEMISTRY METHOD 02/24/2025 7:40 PM T [facility] Comment:Calculation based on the Chronic Kidney Disease Epidemiology Collaboration (CKD-EPI) equation refit without adjustment for race. BUN/Creatinine Ratio 21.6 LAB CHEMISTRY METHOD 02/24/2025 7:40 PM T [facility] Calcium 9.9 8.5 - 10.5 mg/dL LAB CHEMISTRY METHOD 02/24/2025 7:[address] [facility] Blood Venous blood specimen / Unknown Venipuncture / Unknown 02/24/2025 6:50 PM EDT 02/24/2025 7:13 PM EDT us Stephanie Villareal MD LAB BLOOD ORDERABLES Final Resul t [facility] [address] [place] [address], [place] [phone] from Last [address] [place] [id number] MEDICA[place] Advance Directives Documents on File Type Date Recorded Patient Snow Removal/Plowing Expl anation Health Care Decision (hx) 01/19/2021 AD GRIFFIN DIRECTIVE Health Care Decision (hx) 01/19/2021 AD GRIFFIN DIRECTIVE Health Care Decision (hx) 01/19/2021 AD GRIFFIN DIRECTIVE Health Care Decision (hx) 01/19/2021 AD GRIFFIN DIRECTIVE Care Teams Medical Translator Relationship Specialty Start Date End Date Physician, Pcp Unknown PCP - General 02/24/25
--- OUTSIDE RECORDS SUMMARY | 2025-03-06 19:52 | XMS_ITS | Patient Health Record ---
Author Organization [facility] Address [address] [place] [address] Care Team Providers Care Fleet Maintenance Foreman Name Role Phone David Gunn [facility] Primary Care Provider [facility] Unavailable [phone] Reason For Referral No Information Plan Of Treatment No Information Insurance Providers Payer Name Payer Address Payer Phone Subscriber Number Group Number Insured Name Patient Relationship to Insured Coverage Start Date Coverage End Date [facility] Healthy [address] [place] [address] [id number] Lakia Zacarias Self - patient is the insured [place] [address] [place] [address] [phone] [id number] Lakia Zacarias Self - patient is the insured
== END 2025-03-06 17:00 | disposition skilled nursing facility (03) ==
PROVIDERS: Emergency Provider Emergency Medicine; PCP Internal Medicine
DX: M79.7 Fibromyalgia (principal); R52 Pain, unspecified; Z79.899 Other long term (current) drug therapy
CPT/HCPCS: 96372; 99284; J1885

== ENCOUNTER 2025-03-27 11:14 | Outpatient (REF) | payer MEDICAID, SELFPAY ==
[2025-03-27 13:08] LABS: MANUAL DIFF FLAG NO
[2025-03-27 13:33] LABS: Hematocrit 32.3 % (37.0-47.0); Hemoglobin 10.2 g/dl (12.0-16.0); Imm Gran Abs Auto 0.01 X10*3/uL (0.00-0.03); Imm Gran Pct Auto 0.2 % (0.0-0.4); Lymphocytes Absolute Auto 2.2 X10*3/uL (1.2-4.9); Mean Corpuscular HGB Conc 31.6 g/dl (31.0-35.0); Mean Corpuscular Hemoglobin 30.1 pg (27.0-33.0); Mean Corpuscular Volume 95.3 fL (80.0-98.0); NRBC Abs Auto 0.000 X10*3/uL (0.0-0.012); NRBC Pct Auto 0.0 /100WBC (0.0-0.2); Platelet Count 192 X10*3/uL (160-400); Red Blood Count 3.39 X10*6/uL (4.20-5.50); White Blood Count 5.7 X10*3/uL (4.8-10.8)
[2025-03-27 15:15] LABS: Alanine Aminotransferase 50 U/L (0-31); Albumin Level 4.6 g/dL (3.5-5.0); Alkaline Phosphatase 67 U/L (39-117); Anion Gap 12 (12-20); Aspartate Amino Transferase 38 U/L (5-31); Blood Urea Nitrogen 18 mg/dL (9-16); Calcium 9.4 mg/dL (8.4-10.2); Carbon Dioxide 26 mmol/L (22-29); Chloride 105 mmol/L (96-108); Cholesterol 154 mg/dL (<200); Estimated Glomerular Filt Rate 55; HDL Cholesterol 39 mg/dL (>40); Potassium 4.2 mmol/L (3.3-5.1); Sodium 139 mmol/L (135-145); Total Protein 7.9 g/dL (6.5-8.0); Triglycerides 200 mg/dL (<150)
[2025-03-27 15:20] LABS: Thyroid Stimulating Hormone 0.59 uIU/mL (0.32-4.0)
--- OUTSIDE RECORDS SUMMARY | 2025-03-27 22:13 | XMS_ITS | Patient Health Record ---
Author Organization [facility] Address [address] [place] [address] Care Team Providers Care Breaking Machine Operator Name Role Phone David Gunn [facility] Primary Care Provider [facility] Unavailable [phone] Reason For Referral No Information Plan Of Treatment No Information Insurance Providers Payer Name Payer Address Payer Phone Subscriber Number Group Number Insured Name Patient Relationship to Insured Coverage Start Date Coverage End Date [facility] Healthy [address] [place] [address] [phone] [id number] Lakia Zacarias Self - patient is the insured [place] [address] [place] [address] [id number] Lakia Zacarias Self - patient is the insured
== END 2025-03-27 11:15 | disposition home or self-care (01) ==
LOC: HO.10HDL 11:14
PROVIDERS: Visit Provider Internal Medicine
DX: E73.8 Other lactose intolerance (principal); I10 Essential (primary) hypertension; E78.00 Pure hypercholesterolemia, unspecified; F31.9 Bipolar disorder, unspecified; Z72.0 Tobacco use
CPT/HCPCS: 36415; 80053; 80061; 84443; 85025